=== PATIENT | female | born 2000 | race Hispanic/Latino ===

== ENCOUNTER 2024-07-18 18:27 | Emergency (ER) | payer BC ==
[2024-07-18 19:03] LABS: Absolute Basophils 0.1 K/uL (0-0.5); Absolute Eosinophils 0.8 K/uL (0-0.5); Absolute Lymphocytes (CBC) 3.7 K/uL (0.7-4.9); Absolute Monocytes 0.8 K/uL (0.1-1.3); Absolute Neutrophil 7.5 K/uL (1.8-8.0); Basophils % 0.6 % (0-1.3); Eosinophils % 6.5 % (0-4.4); Hematocrit 38.5 % (36.0-45.0); Hemoglobin 12.7 g/dL (12.0-15.0); Lymphocytes % 28.7 % (15.3-44.8); MCH 25.9 pg (27.0-35.0); MCHC 32.9 g/dL (32.0-36.0); MCV 78.9 fL (80-100); MPV 8.9 fL (7.6-11.3); Monocytes % 6.2 % (3.3-12.3); Nucleated Red Blood Cells % 0.3 % (0-0); Platelets 312 thou/uL (152-406); RBC Red Blood Cell Count 4.88 M/uL (3.86-4.86); Red Cell Distribution Width 14.9 % (12.1-15.2)
[2024-07-18] MEDS ORDERED: ONDANSETRON 4 MG/2 ML VIAL ONE (19:10)
[2024-07-18] MEDS ORDERED: NA CHLORIDE 0.9% 1,000 ML ONE (19:10)
[2024-07-18 19:26] LABS: Barbiturates NEGATIVE (NEGATIVE); Benzodiazepines NEGATIVE (NEGATIVE); Cocaine NEGATIVE (NEGATIVE); METHAMPHETAM NEGATIVE (NEGATIVE); Methadone NEGATIVE (NEGATIVE); Opiates NEGATIVE (NEGATIVE); Phencyclidine NEGATIVE (NEGATIVE); THC Cannibis NEGATIVE (NEGATIVE)
[2024-07-18 19:39] LABS: Albumin 3.8 g/dL (3.4-5.0); Albumin/Globulin Ratio 0.8 (1.1-1.8); Anion Gap 11.5 mEq/L (5.0-15.0); Bilirubin Total 0.3 mg/dL (0.2-1.0); Globulin 4.6 g/dL (2.3-3.5); Potassium 3.5 mEq/L (3.5-5.1); Protein, Total 8.4 g/dL (6.4-8.2)
--- NOTE | 2024-07-18 20:00 | RAD REPORT ---
Abdomen Exam Limited: 07/18/2024 7:36 PM CLINICAL HISTORY: ABD PAIN STUDY: Limited right upper quadrant ultrasound of abdomen. COMPARISON: None. FINDINGS: Liver: Limited evaluation but grossly unremarkable. Bile ducts: No intrahepatic or extrahepatic biliary ductal dilatation. Common bile duct measures 4 mm. Gallbladder: Normal. IMPRESSION: Unremarkable exam.
[2024-07-18 20:23] LABS: Specific Gravity 1.006 (1.005-1.030); Sqamous Epithelial <5 /HPF (None Seen); Urine Bacteria <20 /HPF (<20); Urine Bilirubin NEGATIVE (Negative); Urine Blood Negative (Negative); Urine Clarity Turbid (Clear); Urine Color Colorless (Yellow); Urine Culture Reflex Order NOT NEEDED; Urine Glucose NEGATIVE (Negative); Urine Ketones NEGATIVE (Negative); Urine Microscopic Reflex YN ORDER UMIC; Urine Nitrite NEGATIVE (Negative); Urine Protein NEGATIVE (Negative); Urine RBC None Seen /HPF (None Seen); Urine Urobilinogen Normal (Normal); Urine WBC <5 /HPF (<5); Urine pH 5.5 (5.0-7.0)
--- NOTE | 2024-07-18 20:42 | RAD REPORT ---
EXAMINATION: CT ABDOMEN AND PELVIS WITH CONTRAST CLINICAL INDICATION: Female, 24 years old.ABD PAIN TECHNIQUE: CT abdomen and pelvis was performed, after the administration of IV contrast, as per [facility] protocol. Axial, sagittal and coronal reconstructions were obtained. One or more of the following dose reduction techniques were used: Automated exposure control, adjustment of the mA and/o r kV according to patient size, and/or iterative reconstruction. Unless otherwise specified, incidental findings do not require dedicated imaging follow-up. [id number]. COMPARISON: No prior exam. FINDINGS: LOWER CHEST: No acute process identified.No significant pericardial effusion. UPPER GI: No significant abnormality. LIVER: No significant focal abnormality. GALLBLADDER/BILE DUCTS: No biliary ductal dilatation.? PANCREAS: No mass, ductal dilation, or sharath-pancreatic fluid. SPLEEN: Unremarkable. ADRENALS: No adrenal masses. KIDNEYS AND URETERS: No hydronephrosis.No suspicious renal mass. ABDOMINAL AORTA AND OTHER VESSELS: Normal caliber aorta and IVC. PERITONEUM: No abnormal free fluid. No free air. LYMPH NODES: No pathologic lymphadenopathy. ABDOMINAL WALL: Unremarkable SMALL BOWEL/COLON: Small bowel has normal course and caliber. No colonic wall thickening or pericolon ic inflammatory changes.Normal appendix. URINARY BLADDER: Underdistended but grossly unremarkable. REPRODUCTIVE ORGANS: No pathologic process. MUSCULOSKELETAL: ADDITIONAL FINDINGS: None. IMPRESSION: No acute or significant abnormalities seen in the abdomen or pelvis. Normal appendix.
--- NOTE | 2024-07-18 20:57 | EDPHYS ---
Physician Documentation [facility] Name: Janeen Mullins Age: 24 yrs Sex: Female : 2000 Arrival Date: 07/18/2024 Time: 18:27 Bed 6 Private MD: ED Physician Saroj German HPI: 07/18 18:38 This 24 yrs old Female presents to ER via Unassigned with complaints of cp Nausea/Vomiting. 18:38 The patient presents to the emergency department with nausea, that is moderate, cp vomiting, that is intermittent. Onset: The symptoms/episode began/occurred 1 month(s) ago. 18:38 Possible causes: unknown. Associated signs and symptoms: Pertinent positives: abdominal cp pain, Pertinent negatives: diarrhea, dysuria, fever, GI bleeding. Severity of symptoms: in the emergency department the symptoms are unchanged despite home interventions. Historical: - Allergies: 18:38 No Known Allergies; ll1 - Home Meds: 18:38 None [Active]; ll1 - PMHx: 18:38 seasonal allergies; ll1 - PSHx: 18:38 L ACL repair; ll1 - Immunization history:: Adult Immunizations up to date. - Infectious Disease History:: Denies. - Social history:: Smoking status: Patient denies any tobacco usage or history of. ROS: 18:40 Abdomen/GI: Positive for abdominal pain, nausea and vomiting, cp 18:40 Eyes: Negative for injury, pain, redness, and discharge, cp 18:40 Constitutional: Negative for body aches, chills, fever, poor PO intake, 18:40 ENT: Negative for drainage from ear(s), ear pain, sore throat, difficulty swallowing, difficulty handling secretions, 18:40 Cardiovascular: Negative for chest pain, edema, palpitations, 18:40 Respiratory: Negative for cough, shortness of breath, wheezing, 18:40 Neuro: Negative for altered mental status, headache, weakness, 18:40 All other systems are negative, Exam: 18:45 Constitutional: The patient appears in no acute distress, alert, awake, non-toxic, well cp developed, well nourished, obese, 18:45 Head/Face: Normocephalic, atraumatic. cp 18:45 Eyes: Periorbital structures: appear normal, Conjunctiva: normal, no exudate, no injection, Sclera: no appreciated abnormality, Lids and lashes: appear normal, bilaterally, 18:45 ENT: External ear(s): are unremarkable, Nose: is normal, Mouth: Lips: moist, Oral mucosa: moist, Posterior pharynx: Airway: no evidence of obstruction, patent, 18:45 Chest/axilla: Inspection: normal, 18:45 Cardiovascular: Rate: normal, Rhythm: regular, 18:45 Respiratory: the patient does not display signs of respiratory distress, Respirations: normal, no use of accessory muscles, no retractions, labored breathing, is not present, Breath sounds: are clear throughout, no decreased breath sounds, no stridor, no wheezing, 18:45 Abdomen/GI: Inspection: abdomen appears normal, Bowel sounds: active, all quadrants, Palpation: soft, in all quadrants, mild abdominal tenderness, in the left upper quadrant and left lower quadrant, rebound tenderness, is not appreciated, involuntary guarding, is not appreciated, 18:45 Back: CVA tenderness, is absent, Vital Signs: 18:39 BP 150 / 83; Pulse 85; Resp 17; Temp 97; Pulse Ox 98% on R/A; Weight 99.79 kg; Height 5 ll1 ft. 5 in. ; Pain 3/10; 20:16 BP 125 / 57; Pulse 79; Resp 18; Temp 98; Pulse Ox 100% ; bf2 18:39 Body Mass Index 36.61 (99.79 kg, 165.1 cm) ll1 18:39 Pain Scale: Adult ll1 MDM: 18:33 Medical Screening Exam initiated cp 19:00 Differential diagnosis: Nonspecific abd pain, gastritis, cholecystitis, pancreatitis, cp appendicitis, viral gastroenteritis, gastroenteritis. 20:55 Data reviewed: vital signs, nurses notes, lab test result(s), radiologic studies, CT cp scan, ultrasound, and as a result, I will discharge patient. 20:55 I considered the following discharge prescriptions or medication management in the emergency department Medications were administered in the Emergency Department. See MAR. Counseling: I had a detailed discussion with the patient and/or guardian regarding the historical points, exam findings, and any diagnostic results supporting the discharge/admit diagnosis, lab results, radiology results, to return to the emergency department if symptoms worsen or persist or if there are any questions or concerns that arise at home. Response to treatment: the patient's symptoms have mildly improved after treatment, and as a result, I will discharge patient. Special discussion: Based on the patient's Hx, exam, and Dx evaluation, there is no indication for emergent surgery or inpatient Tx. It is understood by the patient/guardian that if the Sx's persist or worsen they need to return immediately for re-evaluation. 07/18 18:37 Order name: CBC with Diff; Complete Time: 19:17 cp 07/18 19:18 Interpretation: Normal except: WBC 12.90; RBC 4.88; MCV 78.9; MCH 25.9; EOSINOPHIL % cp 6.5; EOSA 0.8. 07/18 18:37 Order name: CMP; Complete Time: 19:45 cp 07/18 18:37 Order name: Lipase; Complete Time: 19:45 cp 07/18 18:37 Order name: Urinalysis w/ reflexes; Complete Time: 20:43 cp 07/18 18:38 Order name: Test, Serum; Complete Time: 20:05 cp 07/18 18:39 Order name: UDS; Complete Time: 19:45 cp 07/18 18:37 Order name: US Abdomen Limited: ruq; Complete Time: 20:05 cp 08 20:06 Order name: CT Abd/Pelvis - IV Contrast Only; Complete Time: 20:43 cp 07/18 20:43 Interpretation: Report reviewed. cp 08 18:38 Order name: IV Saline Lock; Complete Time: 18:58 cp 07/18 18:38 Order name: Labs collected and sent; Complete Time: 18:58 cp 07/18 18:38 Order name: NPO; Complete Time: 18:43 cp 07/18 20:53 Order name: PO challenge; Complete Time: 21:03 cp Administered Medications: 19:14 Drug: Ondansetron IVP 4 mg IVP once; over 2 minutes Route: IVP; Site: right antecubital;cp4 21:10 Follow up: Response: No adverse reaction cp4 19:14 Drug: NS 0.9% IV 1000 ml IV at 1 bolus Per protocol; to be given as a bolus over 60 cp4 minutes Route: IV; Rate: 1 bolus; Site: right antecubital; 21:09 Follow up: IV Status: Completed infusion cp4 Disposition Summary: 07/18/24 20:56 Discharge Ordered Notes: Location: Home cp Problem: new cp Symptoms: have improved cp Condition: Stable cp Diagnosis - Nausea with vomiting, unspecified cp - Abdominal pain, unspecified cp Followup: cp - With: Private Physician - When: 1 week - Reason: symptoms continue Discharge Instructions: - Discharge Summary Sheet cp - Abdominal Pain, Adult cp - Nausea and Vomiting, Adult cp Forms: - Medication Reconciliation Form cp - Antibiotic Education cp - Prescription Opioid Use cp - Patient Portal Instructions cp - Leadership Thank You Letter cp Prescriptions: - Pepcid 20 mg Oral Tablet - take 1 tablet ORAL route every 12 hours for 10 days; 20 tablet; Refills: 0, cp Product Selection Permitted - ondansetron 8 mg Oral Tablet,disintegrating - take 1 tablet ORAL route every 12 hours; 20 tablet; Refills: 0, Product cp Selection Permitted Signatures: Dispatcher [employer] EDMS Say Bradshaw PA PA cp Lewis, Lynsay RN RN ll1 Anamaria Gomez RN RN kc6 Tiffanie Andrade cp4 Corrections: (The following items were deleted from the chart) 18:38 18:38 Abdomen Limited+US.RAD.BRZ ordered. EDMS EDMS 18:38 18:38 CBC+H.LAB.BRZ ordered. EDMS EDMS 18:38 18:38 COMPREHENSIVE METABOLIC PANEL+C.LAB.BRZ ordered. EDMS EDMS 18:38 18:38 LIPASE+C.LAB.BRZ ordered. EDMS EDMS 18:38 18:38 Urinalysis+U.LAB.BRZ ordered. EDMS EDMS 18:38 18:38 TEST, SERUM+SC.LAB.BRZ ordered. EDMS EDMS 20:06 20:06 Abdomen Pelvis W Con+CT.RAD.BRZ ordered. EDMS EDMS
--- NOTE | 2024-07-18 20:57 | ER ---
Nurse's Notes [facility] Name: Janeen Mullins Age: 24 yrs Sex: Female : 2000 Arrival Date: 07/18/2024 Time: 18:27 Bed 6 Private MD: Diagnosis: Nausea with vomiting, unspecified;Abdominal pain, unspecified Presentation: 07/18 18:39 Chief complaint: Patient states: N/V for over a month. States period is 2 weeks late, ll1 then states LMP 07/04/24. Home UPT negative. Coronavirus screen: Client denies travel out of the [place] in the last 14 days. nausea, vomiting. Client presents with at least one sign or symptom that may indicate coronavirus-19. Standard/surgical mask placed on the client. Ebola Screen: Patient denies travel to an Ebola-affected area in the 21 days before illness onset. Initial Sepsis Screen: Does the patient meet any 2 criteria? No. Patient's initial sepsis screen is negative. Does the patient have a suspected source of infection? No. Patient's initial sepsis screen is negative. Risk Assessment: Do you want to hurt yourself or someone else? Patient reports no desire to harm self or others. Onset of symptoms was June 14, 2024. 18:39 Method Of Arrival: Ambulatory ll1 18:39 Acuity: ESTRELLITA 3 ll1 Triage Assessment: 18:41 General: Appears in no apparent distress. Behavior is calm, cooperative, appropriate ll1 for age. Pain: Complains of pain in abdomen Quality of pain is described as aching, crampy. GI: Reports lower abdominal pain, upper abdominal pain, nausea, vomiting. Historical: - Allergies: 18:38 No Known Allergies; ll1 - Home Meds: 18:38 None [Active]; ll1 - PMHx: 18:38 seasonal allergies; ll1 - PSHx: 18:38 L ACL repair; ll1 - Immunization history:: Adult Immunizations up to date. - Infectious Disease History:: Denies. - Social history:: Smoking status: Patient denies any tobacco usage or history of. Screenin:58 [facility] ED Fall Risk Assessment (Adult) History of falling in the last 3 months, kc6 including since admission No falls in past 3 months (0 pts) Confusion or Disorientation No (0 pts) Intoxicated or Sedated No (0 pts) Impaired Gait No (0 pts) Mobility Assist Device Used No (0 pt) Altered Elimination No (0 pt) Score/Fall Risk Level 0 - 2 = Low Risk Oriented to surroundings, Maintained a safe environment, Educated pt \T\ family on fall prevention, incl call for assistance when getting out of bed. Abuse screen: Denies threats or abuse. Denies injuries from another. Nutritional screening: No deficits noted. Tuberculosis screening: No symptoms or risk factors identified. Assessment: 20:13 General: Appears in no apparent distress. comfortable, Behavior is calm, cooperative, cp4 appropriate for age. Pain: Denies pain. Neuro: Level of Consciousness is awake, alert, obeys commands, Oriented to person, place, time, situation. Cardiovascular: Patient's skin is warm and dry. Respiratory: Airway is patent Respiratory effort is even, unlabored. GI: Abdomen is round non-distended, Bowel sounds present X 4 quads. Abd is soft and non tender X 4 quads. : No signs and/or symptoms were reported regarding the genitourinary system. EENT: No signs and/or symptoms were reported regarding the EENT system. Derm: No signs and/or symptoms reported regarding the dermatologic system. Musculoskeletal: No signs and/or symptoms reported regarding the musculoskeletal system. Vital Signs: 18:39 BP 150 / 83; Pulse 85; Resp 17; Temp 97; Pulse Ox 98% on R/A; Weight 99.79 kg; Height 5 ll1 ft. 5 in. ; Pain 3/10; 20:16 BP 125 / 57; Pulse 79; Resp 18; Temp 98; Pulse Ox 100% ; bf2 18:39 Body Mass Index 36.61 (99.79 kg, 165.1 cm) ll1 18:39 Pain Scale: Adult ll1 ED Course: 18:31 Patient arrived in ED. ra3 18:32 Say Bradshaw PA is PHCP. cp 18:33 Saroj German MD is Attending Physician. cp 18:35 Arm band placed on Patient placed in an exam room, on a stretcher. kc6 18:41 Triage completed. ll1 18:58 Patient has correct armband on for positive identification. Bed in low position. Call kc6 light in reach. Side rails up X 1. Adult w/ patient. Pulse ox on. NIBP on. Door closed. Noise minimized. Lights dimmed. Pillow given. 18:58 Initial lab(s) drawn, by me, sent to lab. Urine collected: clean catch specimen, clear. kc6 Inserted saline lock: 20 gauge in right antecubital area, using aseptic technique. Blood collected. Flushed with 10 mL NS. Patient maintains SpO2 saturation greater than 95% on room air. 19:07 Tiffanie Andrade is Primary Nurse. cp4 19:39 US Abdomen Limited: ruq In Process Unspecified. EDMS 20:13 No provider procedures requiring assistance completed. cp4 20:29 CT Abd/Pelvis - IV Contrast Only In Process Unspecified. EDMS 21:10 Provided Education on: abdominal pain. cp4 21:10 intact, bleeding controlled, No redness/swelling at site. Pressure dressing applied. cp4 Administered Medications: 19:14 Drug: Ondansetron IVP 4 mg IVP once; over 2 minutes Route: IVP; Site: right antecubital;cp4 21:10 Follow up: Response: No adverse reaction cp4 19:14 Drug: NS 0.9% IV 1000 ml IV at 1 bolus Per protocol; to be given as a bolus over 60 cp4 minutes Route: IV; Rate: 1 bolus; Site: right antecubital; 21:09 Follow up: IV Status: Completed infusion cp4 Medication: 20:13 VIS not applicable for this client. cp4 Outcome: 20:56 Discharge ordered by MD. cp 21:10 Discharged to home ambulatory, cp4 21:10 Condition: stable 21:10 Discharge instructions given to patient, family, Instructed on discharge instructions, follow up and referral plans. medication usage, Demonstrated understanding of instructions, follow-up care, medications, Prescriptions given X 2, 21:11 Patient left the ED. cp4 Signatures: Dispatcher [employer] EDCO Say Bradshaw PA PA cp Lewis, Lynsay RN RN ll1 Anamaria Gomez RN RN Tiffanie Levin cp4 Dafne Cummings 3 Alethea Lewis banner
[2024-07-18 21:19] VITALS: BP 125/57; TEMP 98; O2SAT 100
== END 2024-07-18 21:11 | disposition home or self-care (01) ==
LOC: ER 18:27
DX: R11.2 Nausea with vomiting, unspecified (principal); R10.9 Unspecified abdominal pain
CPT/HCPCS: 96361; 85025; 81001; 36415; 84703; 83690; 80053; 80307; 74177; 76705; 96374; 99284; Q9967; J2405; J7030